=== PATIENT | female | born 1980 | race Caucasian/White ===

== ENCOUNTER → 2017-02-27 | Outpatient (CLI) | payer BC | END | disposition home or self-care (01) | LOC: CFH 12:31 | PROVIDERS: ATTEND Family Medicine | DX: N63 Unspecified lump in breast (principal); N64.4 Mastodynia | CPT/HCPCS: 76642; G0204 ==

== ENCOUNTER 2018-08-16 06:40 | Outpatient (CLI) | payer BC ==
[2018-08-16] MEDS ORDERED: GADOBUTROL 7.5 MMOL/7.5 ML PFS ONE (07:52)
== END 2018-08-16 23:59 | disposition home or self-care (01) ==
LOC: RAD 06:40
PROVIDERS: ATTEND Family Medicine
DX: D18.02 Hemangioma of intracranial structures (principal)
CPT/HCPCS: 70553; A9585